=== PATIENT | male | born 1965 | race Two or more races ===

== ENCOUNTER 2018-05-18 22:52 | Emergency (ER) | payer SELFPAY ==
[2018-05-19] MEDS ORDERED: NORMAL SALINE 1000 ML 1,000 ML IV ONE (01:43)
--- NOTE | 2018-05-19 01:54 | ER Document Report ---
ED General - General Chief Complaint: Blood Pressure Problem Stated Complaint: BLOOD PRESSURE ISSUE Time Seen by Provider: 05/19/18 01:24 Primary Care Provider: [facility] [Provider Group] - Follow up as needed Notes: Patient is a 53-year-old male that comes emergency department for chief complaint of an episode where he felt lightheaded, he states he felt his heartbeat in his ears, he states that he had a vague sensation of shortness of breath but this is not uncommon for him. He denies chest pain, palpitations, dizziness, headache, nausea, vomiting. He states he feels improved now. He states he had just been to the bar and had had 2 drinks of beer before he went home and felt this way. He states that when he felt badly he checked his blood pressure with a wrist cuff and it said his "upper number was 230". On arrival his systolic blood pressure was in the 130s. He is not treated for hyper tension. He denies any medical history other than smoking, hyperlipidemia, and drinking alcohol daily. TRAVEL OUTSIDE OF THE [place] IN LAST 30 DAYS: No - Related Data Allergies/Adverse Reactions: No Known Allergies Allergy (Unverified 05/19/18 02:56) Past Medical History - General Information source: Patient - Social History Smoking Status: Current Every Day Smoker Frequency of alcohol use: Heavy Drug Abuse: None Lives with: Friend Family History: Reviewed & Not Pertinent - Medical History Medical History: Negative - Immunizations Hx Diphtheria, Pertussis, Tetanus Vaccination: Yes Review of Systems - Review of Systems Constitutional: No symptoms reported EENT: No symptoms reported Cardiovascular: See HPI Respiratory: See HPI Gastrointestinal: No symptoms reported Genitourinary: No symptoms reported Male Genitourinary: No symptoms reported Musculoskeletal: No symptoms reported Skin: No symptoms reported Hematologic/Lymphatic: No symptoms reported Neurological/Psychological: See HPI Physical Exam - Vital signs Vitals: Temp Pulse Resp BP Pulse Ox 97.9 F 76 16 134/81 H 97 05/18/18 23:00 05/18/18 23:00 05/18/18 23:00 05/18/18 23:00 05/18/18 23:00 - Notes Notes: GENERAL: Alert, interacts well. No acute distress. HEAD: Normocephalic, atraumatic. EYES: Pupils equal, round, and reactive to light. Extraocular movements intact. ENT: Oral mucosa moist, tongue midline. Oropharynx unremarkable. Airway patent. Nares patent, no nasal septal hematoma, TM's intact. NECK: Full range of motion. Supple. Trachea midline. LUNGS: Clear to auscultation bilaterally, no wheezes, rales, or rhonchi. No respiratory distress. HEART: Regular rate and rhythm. No murmur ABDOMEN: Soft, non-tender. Non-distended. Bowel sounds present in all 4 quadrants. GENITOURINARY: Deferred EXTREMITIES: Moves all 4 extremities spontaneously. No edema, normal radial and dorsalis pedis pulses bilaterally. No cyanosis. BACK: no cervical, thoracic, lumbar midline tenderness. No saddle anesthesia, normal distal neurovascular exam. NEUROLOGICAL: Alert and oriented x3. Normal speech. [cranial nerves II through XII grossly intact]. PSYCH: Normal affect, normal mood. SKIN: Warm, dry, normal turgor. No rashes or lesions noted. Course - Re-evaluation Re-evalutation: Patient's blood pressure here is unremarkable. Vision is very relieved about th is. Because of his episode of lightheadedness and some shortness of breath workup was performed but this was very unremarkable including CBC, chemistry, chest x-ray, troponin and EKG. Patient was given IV fluids. On reevaluation patient is asymptomatic and asking to leave. Because he did not have chest pain, syncope, headache, and he has no deficits on exam with no current symptoms I do have a very low suspicion of arrhythmia, pulmonary embolism, dissection, ACS. He did not have a head injury with his alcohol for me to suspect intracranial abnormality either. Patient will be discharged, I did discuss smoking cessation and alcohol reduction with at length. Discussed return precautions as well. Patient states understanding and agreement. Stable at time of discharge. - Vital Signs Vital signs: Temp Pulse Resp BP Pulse Ox 97.6 F 59 L 17 123/67 99 05/19/18 03:38 05/19/18 03:38 05/19/18 03:38 05/19/18 03:38 05/19/18 03:38 - Laboratory Result Diagrams: 05/19/18 02:05 05/19/18 02:05 Discharge - Discharge Clinical Impression: Episodic lightheadedness, Shortness of breath, Tobacco abuse Condition: Stable Disposition: HOME, SELF-CARE Additional Instructions: Your workup at this time is reassuring. Hydrate and rest. Follow-up with primary care referral. Stop smoking. Reduce alcohol intake because daily use will cause severe life- threatening abnormalities. Return if you worsen including chest pain, passing out, difficulty breathing, or any other concerning or worsening symptoms. Forms: Smoking Cessation Education Referrals: [facility] [Provider Group] - Follow up as needed
[2018-05-19 02:15] LABS: ABSOLUTE BASOPHILS # (AUTO) 0.1 10^3/uL (0.0-0.2); ABSOLUTE EOSINOPHILS # (AUTO) 0.3 10^3/uL (0.0-0.6); ABSOLUTE LYMPHOCYTES (AUTO) 2.8 10^3/uL (0.5-4.7); ABSOLUTE MONOCYTES (AUTO) 0.7 10^3/uL (0.1-1.4); ABSOLUTE NEUT (AUTO) 6.6 10^3/uL (1.7-8.2); BASOPHILS % (AUTO) 1.1 % (0-2); EOSINOPHILS % (AUTO) 2.9 % (0-6); HEMATOCRIT 48.4 % (37.9-51.0); HEMOGLOBIN 16.6 g/dL (13.5-17.0); LYMPHOCYTES % (AUTO) 26.3 % (13-45); MEAN CORPUSCULAR HGB CONC 34.3 g/dL (32.0-36.0); MEAN CORPUSCULAR VOLUME 88 fl (80-97); PLATELET COUNT 204 10^3/uL (150-450); RED BLOOD COUNT 5.53 10^6/uL (4.35-5.55); RED CELL DISTRIBUTION WIDTH 13.1 % (11.5-14.0); SEGMENTED NEUTROPHILS % (AUTO) 62.7 % (42-78); TOTAL CELLS COUNTED % (AUTO) 100 %; WHITE BLOOD COUNT 10.5 10^3/uL (4.0-10.5)
[2018-05-19 02:33] LABS: ALANINE AMINOTRANSFERASE 48 U/L (21-72); ALBUMIN 4.6 g/dL (3.5-5.0); ALKALINE PHOSPHATASE 69 U/L (38-126); ANION GAP 9 (5-19); ASPARTATE AMINO TRANSFERASE 30 U/L (17-59); BILIRUBIN,DIRECT 0.2 mg/dL (0.0-0.4); BILIRUBIN,TOTAL 0.5 mg/dL (0.2-1.3); BLOOD UREA NITROGEN 20 mg/dL (7-20); CARBON DIOXIDE 30 mmol/L (22-30); CHLORIDE 100 mmol/L (98-107); GLUCOSE 109 mg/dL (75-110); POTASSIUM 4.4 mmol/L (3.6-5.0); SODIUM 139.3 mmol/L (137-145); TOTAL PROTEIN 7.5 g/dL (6.3-8.2)
--- NOTE | 2018-05-19 02:56 | RADIOLOGY REPORT (SQ) ---
EXAM DESCRIPTION: XR CHEST 1 VIEW COMPLETED DATE/TME: 05/19/2018 01:43 CLINICAL HISTORY: 53 years, Male, shortness of breath COMPARISON: None. NUMBER OF VIEWS: TECHNIQUE: LIMITATIONS: None. FINDINGS: Somewhat limited examination due to overexposure of the x-ray. No evidence of pulmonary infiltrate or pleural effusion. The heart and mediastinum are unremarkable. Pulmonary vascularity appears normal. There is an old fracture of the left humeral neck. IMPRESSION: No acute finding. copyright 2010 [employer]- All Rights Reserved
[2018-05-19 03:40] VITALS: BP 123/67
--- NOTE | 2018-05-19 14:45 | EKG REPORT ---
SEVERITY:- BORDERLINE ECG - SINUS RHYTHM PROBABLE LEFT ATRIAL ABNORMALITY BORDERLINE T WAVE ABNORMALITIES : Confirmed by: Miguelina Kaur MD 19-May-2018 14:45:02
== END 2018-05-19 03:40 | disposition home or self-care (01) ==
LOC: ER 22:52
DX: R42 Dizziness and giddiness (principal); R06.02 Shortness of breath; F17.200 Nicotine dependence, unspecified, uncomplicated
CPT/HCPCS: 93005; 99284; 96360; 36415; 85025; 80053; 84484; 71045; 93010; J7030